=== PATIENT | male | born 1965 | race Caucasian/White ===

== ENCOUNTER → 2022-07-17 11:43 | Outpatient (BNVA) | payer OTHER, SELFPAY | PROVIDERS: Visit Provider Orthopaedic Surgery | DX: M25.561 Pain in right knee (principal) | CPT/HCPCS: 73560; 73565; 99203 ==

== ENCOUNTER → 2022-07-18 09:13 | Outpatient (BNVA) | payer OTHER, SELFPAY | PROVIDERS: Visit Provider Orthopaedic Surgery | DX: M48.061 Spinal stenosis, lumbar region without neurogenic claudication (principal) | CPT/HCPCS: 72110; 99203; 99204 ==

== ENCOUNTER 2022-08-19 10:19 | Outpatient (CLI) | payer OTHER, SELFPAY ==
--- NOTE | 2022-08-19 11:45 | MR_ITS ---
WS: [id number] MRI RIGHT KNEE NONCONTRAST TECHNIQUE: Axial PD, coronal PD fat sat, coronal PD, sagittal PD, and sagittal PD fat-sat images obta ined. CLINICAL INFORMATION: knee pain COMPARISON: None. FINDINGS: Distal quadriceps and patella tendons are intact. Hypertrophic patella. ACL and PCL are intact. No si gnificant joint effusion. Meniscus appears well preserved. Small horizontal tear involving the posterior horn medial meniscus e xtending to the articular surface. Normal lateral meniscus. Mild chondromalacia involving the medial and lateral joint compartments. No subchondral edema. Moderate chondromalacia patella worse involving the medial patella facet. Medial and lateral patellar retinaculum intact. Normal popliteal fossa. No rmal medial and lateral collateral ligaments. MR/MR knee RT wo con* [id number] IMPRESSION: 1. Normal ACL and PCL. 2. Small horizontal tear involving the posterior horn medial meniscus extendin g to the articular surface. Normal lateral meniscus. 3. Moderate chondromalacia patella worse involving the medial patella facet. N o subchondral edema. 4. Mild chondromalacia involving the medial and lateral joint compartments. 5. Medial and lateral collateral ligaments are intact. 6. No other acute findings. Outbridge grading: grade III: partial-thickness cartilage loss with focal ulcer ation
== END 2022-08-19 10:20 | disposition home or self-care (01) ==
LOC: RAD 10:20
PROVIDERS: Visit Provider Orthopaedic Surgery
DX: M22.41 Chondromalacia patellae, right knee (principal); S83.241A Other tear of medial meniscus, current injury, right knee, initial encounter; X58.XXXA Exposure to other specified factors, initial encounter
CPT/HCPCS: 73721

== ENCOUNTER 2022-08-19 10:19 | Outpatient (CLI) | payer OTHER, SELFPAY ==
--- NOTE | 2022-08-19 11:00 | MR_ITS ---
WS: [id number] MRI LUMBAR SPINE NONCONTRAST TECHNIQUE: Sagittal T1, T2 and STIR imaging. Axial T1 and T2 imaging. CLINICAL INFORMATION: low back pain COMPARISON: None. FINDINGS: Small central disc osteophyte protrusions in the cervical spinal market intelligence consultant imaging at C3-C4 and C6-C7 wit h slight contact of the cervical cord. L1-L2: Normal. L2-L3: Mild facet arthropathy. Spinal canal and foramen are patent. L3-L4: Mild annular bulging with slight effacement of ventral thecal sac. Mild to moderate facet arth ropathy. Spinal canal and foramen are patent. L4-L5: Mild annular bulging. Spinal canal is patent. Mild LEFT and no significant RIGHT foraminal lluvia rowing. Moderate facet arthropathy. L5-S1: Mild disc bulging with osteophytic ridging. Slight impingement on the traversing LEFT S1 nerve root. Mild LEFT foraminal narrowing with contact of the exiting LEFT L5 nerve root. RIGHT foramen is patent. Moderate facet arthropathy. Visualized pelvic bony structures: Normal. Paravertebral soft tissues: Normal. MR/MR lumbar spine wo con* [id number] IMPRESSION: 1. Mild lumbar curve. No acute compression. No high-grade central canal stenos is. 2. Mild disc bulging with osteophytic ridging. Slight impingement on the trave rsing LEFT S1 nerve root. Mild LEFT foraminal narrowing with contact of the exi ting LEFT L5 nerve root. 3. Mild annular bulging L3-L4 with slight narrowing of the RIGHT subarticular recess and encroachment traversing RIGHT L4 nerve root. 4. Mild to moderate facet arthropathy L3-L5.
== END 2022-08-19 10:20 | disposition home or self-care (01) ==
LOC: RAD 10:20
PROVIDERS: Visit Provider Orthopaedic Surgery
DX: M51.26 Other intervertebral disc displacement, lumbar region (principal); M47.896 Other spondylosis, lumbar region
CPT/HCPCS: 72148

== ENCOUNTER → 2022-08-20 14:20 | Outpatient (BNVA) | payer OTHER, SELFPAY | PROVIDERS: Visit Provider Orthopaedic Surgery | DX: M48.062 Spinal stenosis, lumbar region with neurogenic claudication (principal) | CPT/HCPCS: 99214 ==

== ENCOUNTER → 2022-08-27 14:00 | Outpatient (BNVA) | payer OTHER, SELFPAY | PROVIDERS: PCP Nurse Practitioner; Visit Provider Orthopaedic Surgery | DX: S83.206A Unspecified tear of unspecified meniscus, current injury, right knee, initial encounter (principal) | CPT/HCPCS: 99213 ==

== ENCOUNTER → 2022-09-18 10:28 | Outpatient (BNVA) | payer OTHER, SELFPAY | PROVIDERS: PCP Nurse Practitioner; Visit Provider Anesthesiology Pain Medicine | DX: M47.816 Spondylosis without myelopathy or radiculopathy, lumbar region (principal); M79.604 Pain in right leg; M79.605 Pain in left leg | CPT/HCPCS: 99205 ==

== ENCOUNTER → 2022-10-17 13:20 | Outpatient (BNVA) | payer OTHER, SELFPAY | PROVIDERS: PCP Nurse Practitioner; Visit Provider Anesthesiology Pain Medicine | DX: M48.062 Spinal stenosis, lumbar region with neurogenic claudication (principal) | CPT/HCPCS: 62323; J1040; J3490 ==

== ENCOUNTER → 2022-10-31 09:39 | Outpatient (BNVA) | payer OTHER, SELFPAY | PROVIDERS: PCP Nurse Practitioner; Visit Provider Anesthesiology Pain Medicine | DX: M48.062 Spinal stenosis, lumbar region with neurogenic claudication (principal); M47.816 Spondylosis without myelopathy or radiculopathy, lumbar region | CPT/HCPCS: 99212 ==

== ENCOUNTER → 2022-11-28 09:52 | Outpatient (BNVA) | payer OTHER, SELFPAY | PROVIDERS: PCP Nurse Practitioner; Visit Provider Anesthesiology Pain Medicine | DX: M48.062 Spinal stenosis, lumbar region with neurogenic claudication (principal); M47.816 Spondylosis without myelopathy or radiculopathy, lumbar region | CPT/HCPCS: 99214 ==

== ENCOUNTER → 2022-12-04 10:48 | Outpatient (BNVA) | payer OTHER, SELFPAY | PROVIDERS: PCP Nurse Practitioner; Visit Provider Orthopaedic Surgery | DX: S83.206A Unspecified tear of unspecified meniscus, current injury, right knee, initial encounter (principal); X58.XXXA Exposure to other specified factors, initial encounter | CPT/HCPCS: 99213 ==

== ENCOUNTER → 2022-12-19 13:04 | Outpatient (BNVA) | payer OTHER, SELFPAY | PROVIDERS: PCP Nurse Practitioner; Visit Provider Anesthesiology Pain Medicine | DX: M47.816 Spondylosis without myelopathy or radiculopathy, lumbar region (principal); M48.062 Spinal stenosis, lumbar region with neurogenic claudication | CPT/HCPCS: 64493; 64494; 64495; J1030; J3490 ==

== ENCOUNTER 2022-12-26 08:39 | Day surgery (SDC) | payer OTHER, SELFPAY ==
[2022-12-25 12:54] VITALS: BMI 24.8
[2022-12-26] VITALS (10 sets, daily range): BP systolic 94–137; BP diastolic 74–106; PULSE 72–92; RESP 12–25; TEMP 36.3–36.4; O2SAT 96–98
[2022-12-26] MEDS: acetaminophen 500 mg Tablet 1000 MG PO (09:12)
[2022-12-26] MEDS: CELEcoxib 200 mg Capsule 400 MG PO (09:13)
[2022-12-26] MEDS: sodium chloride 0.9% 1,000 ML 30 ML IV (09:14)
--- NOTE | 2022-12-26 10:14 | W.PM.OPSUD ---
Surgery/Procedure H&P Update DATE OF PROCEDURE: December 26, 2022 DATE H&P PERFORMED: 12/03/22 H&P UPDATE INFORMATION: I have reviewed H&P completed within last 30 days PREOP DIAGNOSIS: Right medial meniscal tear PLANNED PROCEDURE: Operation Date: 12/26/22 10:10 Proposed Procedures p right knee artroscopy with medial meniscectomy/ [id number],S83.206A(Right) - Ernesto Hadley MD
[2022-12-26] MEDS: ceFAZolin 2,000 MG in sodium chloride 0.9% (plus) 50 ML 100 MG IV (10:23)
[2022-12-26] MEDS: morphine 4 mg/mL SDV 1 mL 8 MG XX (10:49)
--- NOTE | 2022-12-26 11:15 | P.OP_ITS ---
Operative Report Date of procedure: December 26, 2022 Pre-op diagnosis: Preop Diagnosis Right medial meniscal tear Post-op diagnosis: other Post-op diagnosis: Right lateral meniscal tear, chondromalacia medial femoral condyle, chondromalacia patella Procedure done: Arthroscopic partial lateral meniscectomy, chondroplasty medial femoral condyle, chondroplasty patella right knee Pathology: none sent Surgeon: Ernesto Hadley Anesthesia: General Estimated blood loss (mL): 2 Findings: The patient had degenerative tearing of the central 30% of his lateral meniscus. He had fibrillation fraying and thinning throughout the weightbearing aspect of the medial femoral condyle and central patellar ridge. At no point was exposed subchondral bone identified in either location Condition: stable Disposition: PACU Procedure: The patient was taken to the operating room given 2 g of Ancef and a general anesthesia. He is prepped and draped in the supine position with a tourniquet on the right thigh. The tourniquet was never inflated. The knee was infiltrated with 30 cc of 0.5% Marcaine and 8 mg of morphine. A timeout was performed The knee was initially entered through a standard inferior medial and inferior lateral portal. The diagnostic portion arthroscopy performed. Chondromalacia over the patella and medial femoral condyle was identified. Attention was initially focused on the lateral meniscus. Utilizing a straight basket the torn portions of the lateral meniscus were debrided back to a stable rim. This involved removal of perhaps 25% of the central cartilage in the middle third of the lateral meniscus. The rim was then cleaned up with the Tran [employer] Nephew Werewolf probe leading 70% of the middle third of the meniscus remaining. There is no chondromalacia to address in the lateral compartment. Attention was then focused on the weightbearing aspect the medial femoral condyle. There is noted to be substantial thinning centrally and peripherally unstable flaps circumferentially about the area. Using the Tran [employer] Nephew Werewolf cautery unstable flaps peripherally around the area of thinning were debrided back to a stable base. And no point was subchondral bone identified however cartilage was very thin centrally. Final attention was directed to the undersurface the patella. Using the Tran [employer] Nephew Werewolf cautery unstable flaps about the central ridge of the pat tiffanie were debrided down to a stable base leaving perhaps 50% of the thickness of the cartilage. Knee was irrigated with saline. Portals were closed with 3-0 Prolene. Sterile dressings were applied. The patient was extubated and taken to recovery room in stable condition.
[2022-12-26] MEDS: fentaNYL 50 mcg/mL INJ 2mL IVP (11:30)
[2022-12-26] MEDS: HYDROcodone-acetaminophen 5-325 mg Tablet 1 TAB PO (12:20)
--- NOTE | 2022-12-26 14:05 | ANES.PREANE2 ---
Pre-Anesthetic Assessment Height/Weight: Height 1.78 m Weight 78.471 kg Temp Pulse Resp BP Pulse Ox O2 Del Method 97.4 F L 80 16 135/91 98 12/26/22 11:58 12/26/22 12:31 12/26/22 12:31 12/26/22 12:31 12/26/22 12:31 12/26/22 12:31 Preop Diagnosis: Right medial meniscal tear Operation Date: 12/26/22 10:10 Proposed Procedures p right knee artroscopy with medial meniscectomy/ [id number],S83.206A(Right) - Ernesto Hadley MD Familial anesthetic complications: none Was Beta Sanju taken within 24 hours: N/A Was Clonidine taken within 24 hours: N/A Last intake: Intake Last Liquid Date 12/25/22 Last Liquid Time 23:00 Last Solid Date 12/25/22 Last Solid Time 20:00 Social Tobacco and No alcohol Exam alert, oriented x 3 and regular rate & rhythm Airway Submandibular: within normal limits Cervical ROM: within normal limits Mallampati: Class II Dentition: false Pulmonary Chronic Obstructive Pulmonary Disease Metabolic Hyperlipidemia [facility] [place] Lower Back Pain and Osteoarthritis/DJD Anesthetic Plan ASA status: 2 Anesthesia: General Medications/Allergies Home Medications Medication Instructions Recorded Confirmed Last Taken Type celecoxib 200 mg capsule (Celebrex) 200 mg PO DAILY 07/18/22 12/26/22 12/17/22 History simvastatin 20 mg tablet 20 mg PO DAILY 07/18/22 12/26/22 12/25/22 History hydrocodone 5 mg-acetaminophen 325 1 tab PO Q4H #30 tabs 12/26/22 Unknown Rx mg tablet Allergies Allergy/AdvReac Type Severity Reaction Status Date / Time No Known Allergies Allergy Verified 12/26/22 09:08 [facility] Anesthesia Social History Smoking and tobacco status: current every day smoker Second hand smoke exposure: No Smoking risk assessment/counseling performed?: No Alcohol intake: current Desire information about alcohol rehabilitation?: No Counseling given: No Desire information about substance/drug rehabilitation?: No Counseling given: No Data Anesthesia Cardiac Studies: No Data to Display
--- NOTE | 2022-12-26 16:04 | ANE.PACU2 ---
Inpatient post-anesthesia follow up: Airway intact: Yes Vital signs: Temperature 97.4 F Pulse Rate 80 Respiratory Rate 16 Blood Pressure 135/91 Pulse Oximetry 98 Oxygen Delivery Me thod Room Air Oxygen Flow Rate Fraction of Inspir ed Oxygen Hydration adequate: Yes Nausea and vomiting: No Pain level: 3 Mental status: Baseline
== END 2022-12-26 12:55 | disposition home or self-care (01) ==
PROVIDERS: PCP Nurse Practitioner; Visit Provider Orthopaedic Surgery
PROC: (CPT 29870; principal; 2022-12-26 10:10)
DX: S83.281A Other tear of lateral meniscus, current injury, right knee, initial encounter (principal); X58.XXXA Exposure to other specified factors, initial encounter; M22.41 Chondromalacia patellae, right knee; J44.9 Chronic obstructive pulmonary disease, unspecified; E78.5 Hyperlipidemia, unspecified; F17.210 Nicotine dependence, cigarettes, uncomplicated
CPT/HCPCS: 29881; J0690; J1100; J2250; J2270; J2405; J2704; J2795; J3010; J3490; J7030

== ENCOUNTER → 2023-01-07 09:30 | Outpatient (BNVA) | payer OTHER, SELFPAY | PROVIDERS: PCP Nurse Practitioner; Visit Provider Anesthesiology Pain Medicine | DX: M48.062 Spinal stenosis, lumbar region with neurogenic claudication (principal); M47.816 Spondylosis without myelopathy or radiculopathy, lumbar region | CPT/HCPCS: 99214 ==

== ENCOUNTER → 2023-01-08 09:22 | Outpatient (BNVA) | payer OTHER, SELFPAY | PROVIDERS: PCP Nurse Practitioner; Visit Provider Orthopaedic Surgery | DX: Z98.890 Other specified postprocedural states (principal) | CPT/HCPCS: 99024 ==

== ENCOUNTER → 2023-01-09 08:34 | Outpatient (BNVA) | payer OTHER, SELFPAY | PROVIDERS: PCP Nurse Practitioner; Visit Provider Anesthesiology Pain Medicine | DX: M79.18 Myalgia, other site (principal); M48.062 Spinal stenosis, lumbar region with neurogenic claudication | CPT/HCPCS: 20553; 99212 ==

== ENCOUNTER → 2023-02-05 09:49 | Outpatient (BNVA) | payer OTHER, SELFPAY | PROVIDERS: PCP Nurse Practitioner; Visit Provider Orthopaedic Surgery | DX: Z98.890 Other specified postprocedural states (principal); M17.11 Unilateral primary osteoarthritis, right knee | CPT/HCPCS: 20610; 99024; J0702; J3490 ==

== ENCOUNTER → 2023-02-06 08:48 | Outpatient (BNVA) | payer OTHER, SELFPAY | PROVIDERS: PCP Nurse Practitioner; Visit Provider Anesthesiology Pain Medicine | DX: M48.062 Spinal stenosis, lumbar region with neurogenic claudication (principal); M47.816 Spondylosis without myelopathy or radiculopathy, lumbar region | CPT/HCPCS: 99214; 99215 ==

== ENCOUNTER → 2023-03-05 10:33 | Outpatient (BNVA) | payer OTHER, SELFPAY | PROVIDERS: PCP Nurse Practitioner; Visit Provider Orthopaedic Surgery | DX: Z98.890 Other specified postprocedural states (principal); M17.11 Unilateral primary osteoarthritis, right knee | CPT/HCPCS: 20610; 99024; J7326 ==

== ENCOUNTER → 2023-03-06 13:38 | Outpatient (BNVA) | payer OTHER, SELFPAY | PROVIDERS: PCP Nurse Practitioner; Visit Provider Anesthesiology Pain Medicine | DX: M54.16 Radiculopathy, lumbar region (principal); M48.062 Spinal stenosis, lumbar region with neurogenic claudication | CPT/HCPCS: 64483; 64484 ==

== ENCOUNTER → 2023-03-24 13:39 | Outpatient (BNVA) | payer OTHER, SELFPAY | PROVIDERS: PCP Nurse Practitioner; Visit Provider Anesthesiology Pain Medicine | DX: M54.16 Radiculopathy, lumbar region (principal); M48.062 Spinal stenosis, lumbar region with neurogenic claudication | CPT/HCPCS: 64483; 64484; J1100; J3490 ==

== ENCOUNTER → 2023-04-14 09:22 | Outpatient (BNVA) | payer OTHER, SELFPAY | PROVIDERS: PCP Nurse Practitioner; Visit Provider Anesthesiology Pain Medicine | DX: M47.816 Spondylosis without myelopathy or radiculopathy, lumbar region (principal); M48.062 Spinal stenosis, lumbar region with neurogenic claudication | CPT/HCPCS: 99214 ==

== ENCOUNTER → 2023-04-29 15:55 | Outpatient (BNVA) | payer OTHER, SELFPAY | PROVIDERS: PCP Nurse Practitioner; Visit Provider Physician Assistant | DX: M47.816 Spondylosis without myelopathy or radiculopathy, lumbar region (principal); M48.062 Spinal stenosis, lumbar region with neurogenic claudication | CPT/HCPCS: 72100; 99213 ==

== ENCOUNTER 2023-05-08 11:14 | Outpatient (CLI) | payer OTHER, SELFPAY ==
--- NOTE | 2023-05-08 11:45 | MR_ITS ---
WS: [id number] MRI LUMBAR SPINE NONCONTRAST HISTORY: M48.062 - Spinal stenosis, lumbar region with neurogenic ... COMPARISON: 08/19/2022 TECHNIQUE: Sagittal and axial multisequence imaging is submitted. Mild osteophyte/disc contact on the cervical cord at C3-4 and C6-7. Normal lumbar alignment with no compression fractures or marrow edema. Mild disc narrowing and desiccation. No acute lumbar fractures. Conus terminates normally at L1-2 disc level. L1-L2: Normal. L2-L3: Mild annular disc bulging with minimal ligamentum flavum hypertrophy. No stenosis. L3-L4: Mild diffuse annular disc bulging encroaching upon the ventral thecal sac. Mild facet arthriti s. Very mild disc encroachment upon the right traversing L4 nerve root. L4-L5: Mild annular disc bulging with mild facet arthritis. Very minimal encroachment upon the forami na. No high-grade stenosis. L5-S1: Mild annular disc bulging with mild to moderate bilateral facet joint arthritis. Mild to moder ate bilateral foraminal stenosis. Very minimal impingement upon the left S1 nerve root as seen on the prior study. Paravertebral soft tissues are normal. IMPRESSION: 1. No high-grade central or foraminal stenosis. 2. Mild to moderate bilateral foraminal stenosis at L5-S1 with minimal disc encroachment upon the lef t S1 nerve root. Very similar to the prior study. 3. Very minimal disc encroachment upon the right traversing L4 nerve root. 4. No lumbar spine fracture.
== END 2023-05-08 11:15 | disposition home or self-care (01) ==
PROVIDERS: PCP Nurse Practitioner; Visit Provider Anesthesiology Pain Medicine
DX: M48.062 Spinal stenosis, lumbar region with neurogenic claudication (principal)
CPT/HCPCS: 72148; 99213

== ENCOUNTER → 2023-06-26 10:14 | Outpatient (BNVA) | payer OTHER, SELFPAY | PROVIDERS: PCP Nurse Practitioner; Visit Provider Physician Assistant | DX: M48.062 Spinal stenosis, lumbar region with neurogenic claudication (principal); M47.816 Spondylosis without myelopathy or radiculopathy, lumbar region; M51.36 Other intervertebral disc degeneration, lumbar region | CPT/HCPCS: 99213 ==

== ENCOUNTER 2023-07-01 10:06 | Outpatient (CLI) | payer OTHER, SELFPAY ==
[2023-07-01 10:36] LABS: Basophils # 0.1 10^3/uL (0.0-0.1); Basophils % 0.9 %; Eosinophils # 0.1 10^3/uL (0.0-0.8); Hematocrit 49.8 % (37-53); Lymphocytes # 1.8 10^3/uL (0.8-4.8); Lymphocytes % 27.8 %; Mean Corpuscular HGB Conc 33.3 g/dL (30-55); Mean Corpuscular Hemoglobin 32.1 pg (27-33); Mean Corpuscular Volume 96.3 fl (82-101); Mean Platelet Volume 9.6 fL (7.4-10.4); Monocytes # 0.4 10^3/uL (0.2-0.9); Monocytes % 5.4 %; Neutrophils # 4.14 10^3/uL (1.8-7.7); Neutrophils % 63.6 %; Nucleated Red Blood Cells % 0 %; Platelet Count 257 10^3/cmm (157-399); Red Blood Count 5.17 10^6/uL (3.85-5.65); Red Cell Distribution Width 12.3 % (12.1-15.1); White Blood Count 6.51 10^3/uL (3.29-11.43)
[2023-07-01 11:00] LABS: Alanine Aminotransferase 13 U/L (0-41); Albumin Level 4.6 g/dL (3.5-5.2); Alkaline Phosphatase 58 U/L (40-130); Anion Gap 13.2 (5-19); Aspartate Amino Transferase 20 U/L (0-40); Blood Urea Nitrogen 12 mg/dL (6-20); Calcium 9.4 mg/dL (8.5-10.5); Carbon Dioxide 28 mmol/L (22-29); Chloride 103 mmol/L (98-107); Globulin 2.7 g/dL (1.3-4.6); Glomerular Filtration Rate 76.5 mL/min (90-130); Glucose 98 mg/dL (65-115); Osmolality Calculated 290 mOsm/kg (285-295); Potassium 4.2 mmol/L (3.5-5.1); Sodium 140 mmol/L (136-145); Total Bilirubin 0.2 mg/dL (0.15-1.2); Total Protein 7.3 g/dL (6.6-8.7)
[2023-07-01 11:19] LABS: Estmated Average Glucose 108; Hemoglobin A1C 5.4 % (4.0-6.0)
[2023-07-01 11:49] LABS: Add Urine Microscopic? YES; Bacteria Urine TRACE /hpf; Bilirubin Urine Neg (Negative); Blood Urine 2+ (Negative); Glucose Urine UA Norm (Normal); Ketones Urine Negative (Negative); Leukocyte Esterase Urine Negative (Negative); Mucus Urine 1+ /hpf; Nitrate Urine Negative (Negative); Protein Urine Neg (Negative); RBC Urine 0-4 /hpf (0-2); Specific Gravity, Urine 1.015 (1.005-1.030); Squamous Epithelial Cell Urine RARE /hpf (0-5); Urine Appearance Clear (CLEAR); Urine Color Yellow (Yellow); Urobilinogen Urine Norm (Negative); WBC Urine RARE /hpf (0-5); pH Urine 5 (5-7)
== END 2023-07-01 10:07 | disposition home or self-care (01) ==
PROVIDERS: PCP Nurse Practitioner; Visit Provider Physician Assistant
DX: M48.062 Spinal stenosis, lumbar region with neurogenic claudication (principal); Z79.899 Other long term (current) drug therapy
CPT/HCPCS: 36415; 80053; 81001; 83036; 85025

== ENCOUNTER → 2023-07-09 10:05 | Outpatient (BNVA) | payer OTHER, SELFPAY | PROVIDERS: PCP Nurse Practitioner; Visit Provider Family Medicine | DX: Z01.818 Encounter for other preprocedural examination (principal) | CPT/HCPCS: 81000 ==

== ENCOUNTER 2023-07-11 08:38 | Inpatient (IN) | payer OTHER, SELFPAY ==
[2023-07-11] VITALS (19 sets, daily range): BP systolic 89–130; BP diastolic 51–84; PULSE 56–86; RESP 11–19; TEMP 35.9–36.6; O2SAT 90–97; BMI 25.8
--- NOTE | 2023-07-11 | XR_ITS ---
WS: [id number] Lumbar spine, C-arm fluoroscopy views, 07/11/2023 Clinical Data: L5 -S1 fusion. or pic Comparison: Lumbar spine, 04/29/2023 Findings: Dr. Driscoll performed a posterior lumbar fusion Impression: Posterior lumbar fusion.
[2023-07-11] MEDS: methadone 10 mg Tablet PO (06:12)
[2023-07-11] MEDS: sodium chloride 0.9% 1,000 ML 30 ML IV (06:13)
--- NOTE | 2023-07-11 06:36 | W.PM.OPSUD ---
Surgery/Procedure H&P Update DATE OF PROCEDURE: July 11, 2023 DATE H&P PERFORMED: 07/09/23 H&P UPDATE INFORMATION: I have reviewed H&P completed within last 30 days, I have examined patient prior to procedure and No changes to prior documentation PREOP DIAGNOSIS: DDD lumbar spine PLANNED PROCEDURE: Operation Date: 07/11/23 07:00 Proposed Procedures p Spinal Fusion PSF(Not Applicable) - Randall Driscoll DO s Posterior Lumbar Interbody Fusion PLIF(Not Applicable) - Randall Driscoll DO
--- NOTE | 2023-07-11 06:53 | P.ANESASSM_ITS ---
Documented by User: DANILO Winston 07/11/23 06:55 Pre-Anesthetic Assessment Height/Weight: Height 1.75 m Weight 79.379 kg Temp Pulse Resp BP Pulse Ox O2 Del Method 97.0 F L 86 19 H 104/68 97 Room Air 07/11/23 05:52 07/11/23 05:52 07/11/23 06:12 07/11/23 05:52 07/11/23 05:52 07/11/23 06:06 Preop Diagnosis: DDD lumbar spine Operation Date: 07/11/23 07:00 Proposed Procedures p Spinal Fusion PSF(Not Applicable) - Randall Driscoll DO s Posterior Lumbar Interbody Fusion PLIF(Not Applicable) - Randall Driscoll DO Familial anesthetic complications: None Was Beta Sanju taken within 24 hours: N/A Was Clonidine taken within 24 hours: N/A Last intake: Intake Last Liquid Date 07/10/23 Last Liquid Time 23:00 Last Solid Date 07/10/23 Last Solid Time 19:30 Social Alcohol and Tobacco Exam alert and oriented x 3 Airway Submandibular: within normal limits Cervical ROM: within normal limits Mallampati: Class II Dentition: partials History/ROS No significant history except as noted Pulmonary Cough (r/t smoking) CV/HEM None reported None reported Hepatic None reported GI None reported Metabolic None reported Musc/skel Lower Back Pain Neuropsych None reported Anesthetic Plan ASA status: 2 Anesthesia: General Risk of > 500 ml blood loss (7ml/kg in children): No Medications/Allergies Home Medications Medication Instructions Recorded Confirmed Last Taken Type celecoxib 200 mg capsule (Celebrex) 200 mg PO DAILY 07/18/22 07/11/23 07/08/23 History finasteride 5 mg tablet 5 mg PO DAILY 07/09/23 07/11/23 07/10/23 History gabapentin 300 mg capsule 100 mg PO TID pain 07/09/23 07/11/23 07/10/23 History methocarbamol 750 mg tablet 750 mg PO BID PRN Spasms 07/09/23 07/10/23 Unknown History rosuvastatin 40 mg tablet (Crestor) 20 mg PO DAILY 07/09/23 07/11/23 07/10/23 History trazodone 100 mg tablet 100 mg PO DAILY 07/09/23 07/11/23 07/10/23 History Allergies Allergy/AdvReac Type Severity Reaction Status Date / Time topiramate Allergy Mild numbness Uncoded 07/10/23 11:29 Current Medications Generic Name Dose Route Start Last Admin Trade Name Bob PRN Reason Stop Dose Admin Sodium Chloride 1,000 mls @ 30 mls/hr 07/11/23 06:00 07/11/23 06:13 Sodium Chloride 0.9% IV 07/12/23 05:59 30 mls/hr .Q24H DANIEL Administration PFS Anesthesia Social History Smoking and tobacco/nicotine status: current every day tobacco/nicotine user Second hand smoke exposure: No Alcohol intake: current Substance/Drug Use: never Data Anesthesia Cardiac Studies: No Data to Display Documented by User: Ryan Lane 07/11/23 07:19 Pre-Anesthetic Assessment Pulmonary Chronic Obstructive Pulmonary Disease Metabolic Hyperlipidemia [facility] [place]/[facility] Osteoarthritis/DJD Medications/Allergies Home Medications Medication Instructions Recorded Confirmed Last Taken Type celecoxib 200 mg capsule (Celebrex) 200 mg PO DAILY 07/18/22 07/11/23 07/08/23 History finasteride 5 mg tablet 5 mg PO DAILY 07/09/23 07/11/23 07/10/23 History gabapentin 300 mg capsule 100 mg PO TID pain 07/09/23 07/11/23 07/10/23 History methocarbamol 750 mg tablet 750 mg PO BID PRN Spasms 07/09/23 07/10/23 Unknown History rosuvastatin 40 mg tablet (Crestor) 20 mg PO DAILY 07/09/23 07/11/23 07/10/23 History trazodone 100 mg tablet 100 mg PO DAILY 07/09/23 07/11/23 07/10/23 History Allergies Allergy/AdvReac Type Severity Reaction Status Date / Time topiramate Allergy Mild numbness Uncoded 07/10/23 11:29 [facility] Anesthesia Social History Smoking and tobacco/nicotine status: current every day tobacco/nicotine user Second hand smoke exposure: No Alcohol intake: current Substance/Drug Use: never Data Anesthesia Cardiac Studies: No Data to Display
[2023-07-11] MEDS: ceFAZolin 2,000 MG in sodium chloride 0.9% (plus) 50 ML 100 MG IV ×3 (06:59→23:51)
[2023-07-11] MEDS: lidocaine-epi 2% 20 mL INJ INJECTION (08:19)
[2023-07-11] MEDS: vancomycin 1,000 MG SDV 1000 MG XX (08:20)
[2023-07-11] MEDS: heparin, porcine 1,000 unit/mL INJ 10 mL 10000 UNIT IRRIGATION (08:21)
--- NOTE | 2023-07-11 09:36 | P.OP_ITS ---
Operative Report Date of procedure: July 11, 2023 Pre-op diagnosis: Lumbar stenosis with neurogenic claudication Post-op diagnosis: same Procedure done: 1. L5/S1 Interbody fusion with posterolateral fusion 2. Instrumentation L5-S1 3. Cage at L5/S1 4. L5/S1 laminectomy with partial facetectomy 5. use of autograft from same incision 6. allograft 7. Bone marrow aspirate from right iliac crest 8 use of computer navigation/steeotactic for spine Surgeon: Randall Driscoll DO Electric Accounting Machine Operator: Brad Thao Electric Accounting Machine Operator: The surgical services director, Brad Thao, PAC was needed for his expertise under the microscope. He was important and necessary throughout the procedure to complete in a safe and timely manner. He assisted with patient positioning prepping and draping tissue retraction suctioning of the operative field protection of the dural sac and tissue closure Estimated blood loss (mL): 200 Procedure: 1. L5/S1 Interbody fusion with posterolateral fusion 2. Instrumentation L5-S1 3. Cage at L5/S1 4. L5/S1 laminectomy with partial facetectomy 5. use of autograft from same incision 6. allograft 7. Bone marrow aspirate from right iliac crest 8 use of computer navigation/steeotactic for spine Patient is brought to the operative suite. After undergoing anesthesia, the patient had neuro monitoring attached. Patient was then placed in the prone position on the Mikal table. All areas of impingement were well-padded. Patient was then prepped and draped in the normal sterile fashion. Skin incision was then made L5-S1. Subperiosteal dissection was made out to the transverse processes of L5 and S1 sacral ala. Next tension was brought to the [employer] bone marrow aspirate kit was used to aspirate bone marrow aspirate from the right iliac crest. This was done by using the sharp probe to open up the bone. Aspiration was performed and then the blunt probe was then used to dissect down to through the bone tunnel. An aspirating well drawn back a millimeter approximately 20 cc of bone marrow aspir ate was used. And mixed with the allograft and autograft bone that will be used. Patient is brought to placing the fiducial for the computer navigation. 2 pins were placed into the right iliac crest. The fiducial was then attached. Was brought in and spun around the patient. Next the information from serum was then loaded in the computer and this was used later used for the use of computer navigation placed pedicle screws. The technique for placing the pedicle screws was to use a drill followed by the gearshift probe linked to computer navigation. Followed by the ball probe to feel the superior inferior medial lateral sanderson of the pedicles. Then placement of the screws with computer navigation. Was done at each pedicle. Screws were placed at L5 bilaterally and S1 . Next attention was brought to performing the laminectomy ofL5. This was done using the high-speed bur Kerrisons and curettes. Once the lamina was removed and then attention was brought to performing a partial facetectomy on the contralateral side. This was done again using the high-speed bur curettes and Kerrisons. The ligamentum flavum was taken down bilaterally from L5 to S1. Attention was then brought to the facet on the ipsilateral side. The facet was taken down. The S1 nerve was decompressed as it passed around the S1 pedicle. The laminectomy was done for purposes of decompressing the nerve as well as placement of the cage. The L5 nerve was identified as it traversed through the L5/S1 foramen. The thecal sac was identified and retracted. The L5/S1 disc base was identified. Using a knife the disc base was opened. And then sequential owen were placed. The first shaver was a 6 and the last shaver was a 8. Using a pituitary and down going curette the endplates were scraped and disc material was removed from the space. Once adequate decompression of the disc base was felt to be had. Osteoamp sponge was packed into the anterior aspect of the disc base. Then a size 9 cage from [place] was placed after packing osteoamp into the cage. While placing the cage the thecal sac and S1 nerve was protected. C arm was used to ensure that the cages placed in the appropriate position. Attention was then brought to attaching the rods to the screws placed in the L5 bilaterally and S1 bilaterally. Caps were torqued into position. Locking the construct in place. Wound was copiously irrigated and then attention was brought to decorticating the facets and transverse processes laterally. Bone that was taken down from the lamina was used along with osteoamp fibers and sponges were packed into the lateral gutters along the facet joints. This was done bilaterally. Wound was then closed in a layered fashion starting with the thoracolumbar fascia. 0-vicryl was used the sub cutaneous tissue was closed with 2-0 vicryl and skin with 4-0 monocryl. Glue was then used to seal the skin and a steril dressing was applied. Patient was then placed in the supine position. The endotracheal tube was removed and patient was transferred to the PACU in stable condition.
[2023-07-11] MEDS: ketorolac 30 mg/mL INJ IVP ×2 (10:46→21:27)
[2023-07-11] MEDS: lactated ringers 1,000 ML 90 ML IV (10:47)
[2023-07-11] MEDS: HYDROcodone-acetaminophen 5-325 mg Tablet PO ×3 (10:48→21:24)
--- OUTSIDE RECORDS SUMMARY | 2023-07-11 12:02 | XMS_ITS | Patient Health Record ---
Author Name Unknown Organization [facility] Address [address] [place] [address] Care Team Providers Care Construction Tech Name Role Phone Kalen MULLER Primary Care Provider Unavailab Merrick Stacy Unavailable Melvin Evans Unavailable [phone] ALLERGIES Allergen (clinical drug ingredient) Drug/Non Drug Allergy documented on EMR Reaction Allergy Type Onset Date Status tamsulosin Tamsulosin Unknown Drug Allergy Activ e topiramate Topiramate Unknown Drug Allergy Activ e RESULTS Component Value Reference Range Notes UA Without Micro-Auto [id number] Reviewed date:01/31/2023 11:52:17 AM Interpretation: Performing Lab: Notes/Report: Color yellow Clarity clear Glucose - Bili - Ketones - Sp Jemison 1.015 Blood - pH 6.0 Protein - Urobili - Nitrites - Leukocytes - UA Without Micro-Auto [id number] Reviewed date:02/26/2023 02:26:41 PM Interpretation: Performing Lab: Notes/Report: Color yellow Clarity clear Glucose - Bili - Ketones - Sp Jemison 1.010 Blood trace pH 5.5 Protein - Urobili - Nitrites - Leukocytes - REASON FOR REFERRAL Reason Screening Recall-Dye r-Not due until after 09/15/2022 COLON Diagnosis 1 Colon cancer high ri sk (Z91.89) Referring Provider First Name Kalen diana Referring Provider Last Name [place] Referring Provider Speciality [facility] Referred Organization [facility] Referred Provider Melvin Evans Referred Address [address] [place],[address] Referred Provider Specialty Gastroentero logy Referral Priority Routine Reason [facility] Action Reminder S et 01/20/23 Diagnosis 1 Urethral diverticulu m (N36.1) Referring Provider First Name Kalen diana Referring Provider Last Name [place] [facility]erring Provider [facility] Referred Organization [facility] Referred Provider aMc Andrea Referred Address [address] [place] [address],[facility],[place],[address], Referred Provider Specialty Urology Referral Priority Routine MEDICATIONS Medication SIG (Take, Route, Frequency, Duration) Notes Start Date End Date Status Celecoxib Active Sildenafil Citrate A ctive traZODone HCl Active Rosuvastatin Calcium 40 MG Half a tablet Orally Once a day Active HYDROcodone-Acetaminophen Active IMMUNIZATIONS Vaccine Route Administration Date Status Comme nts Influenza (whole), CPT 44168 Inactive Unknown 07/26/2019 Administered SOCIAL HISTORY Tobacco Use: Social History Observation Description Date Details (start date - stop date) Current Smoker NA - NA Sex Assigned At : Social History Observation Description Sex Assigned At Unknown Tobacco Use/Smoking Question Answer Notes Are you a current smoker How often do you smoke cigarettes? some days, bu t not every day How many cigarettes a day do you smoke? 6-10 Alcohol Screen (Audit-C) Question Answer Notes Did you have a drink contain ing alcohol in the past year? Yes How often did you have a dri nk containing alcohol in the past year? 2 to 3 times a week (3 points) How many drinks did you have on a typical day when you were drinking in the past year? 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) Active confirmed 186752726 Problem BPH loc w urin obs/LUTS (N40.1) Active confirmed 175196909 Problem History of adenomatous polyp of colon (Z86.010) Active confirmed 803234103 Problem Microscopic hematuria (R31.29) Active confirmed Microscopic hematuria (149916071) Problem Erectile dysfunction, unspecified erectile dysfunction type (N52.9) Active confirmed 184285290 Problem Benign prostatic hyperplasia with lower urinary tract symptoms (N40.1) Active confirmed Lower urinary tract symptoms due to benign prostatic hypertrophy (90465490140322 ) Problem Feeling of incomplete bladder emptying (R39.14) Active confirmed Incomplete emptying of bladder (316585501) Problem Poor urinary stream (R39.12) Active confirmed Slowing of urinary stream (89418579) Problem 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) Active confirmed 27531358 Problem Obstructive and reflux uropathy, unspecified (N13.9) Active confirmed Urinary tract obstruction (6061939) VITAL SIGNS Heart Rate 74 /min 04/17/2023 Temperature 97.8 degrees Fahrenheit 04/17/2023 Height-cm 172.72 cm 04/17/2023 Blood pressure diastolic 74 mm Hg 04/17/2023 Weight-kg 78.93 kg 04/17/2023 Height 68 in 04/17/2023 Blood pressure systolic 122 mm Hg 04/17/2023 Weight 174 lbs 04/17/2023 BMI 26.45 kg/m2 04/17/2023 PROCEDURES Procedure Date Ordered Date Performed Result Body Sit e ELECTRO-UROFLOWMETRY FIRST 04/17/2023 N/A Encounters Encounter Location Date Provider Diagnosis [facility] [address] [place] [address] 09/18/2022 Melvin Evans [facility] [address] [place] [address], [place] [address] 01/07/2023 Merrick Perez [facility] [address] [place] [address], [place] [address] 01/20/2023 Merrick Perez Diverticulum of urachus Q64.4 ; Erectile dysfunction, unspecified erectile dysfunction type N52.9 ; BPH loc w urin obs/LUTS N40.1 ; Poor urinary stream R39.12 and Feeling of incomplete bladder emptying R39.14 [facility] [address] [place] [address] 04/17/2023 Merrick Perez BPH loc w urin obs/LUTS N40.1 ; Poor urinary stream R39.12 ; Feeling of incomplete bladder emptying R39.14 ; Intermittent urinary stream R39.13 ; Microscopic hematuria R31.29 ; Diverticulum of urachus Q64.4 and Erectile dysfunction, unspecified erectile dysfunction type N52.9 [facility] [address] [place] [address] 09/16/2022 Melvin Evans History of adenomatous polyp of colon Z86.010 and Screening for colon cancer Z12.11 [facility] [address] [place] [address], [place] [address] 02/26/2023 Merrick Perez Diverticulum of urachus Q64.4 ; Erectile dysfunction, unspecified erectile dysfunction type N52.9 ; BPH loc w urin obs/LUTS N40.1 ; Poor urinary stream R39.12 ; Feeling of incomplete bladder emptying R39.14 and Microscopic hematuria R31.29 ASSESSMENTS Encounter Date Diagnosis Assessment Notes Treatment Notes Treatment Clinical Notes 09/16/2022 History of adenomatous polyp of colon (ICD-10 - Z86.010) High risk screening colonoscopy today. 01/20/2023 Erectile dysfunction, unspecified erectile dysfunction type (ICD-10 - N52.9) 01/20/2023 Diverticulum of urachus (ICD-10 - Q64.4) 02/26/2023 Erectile dysfunction, unspecified erectile dysfunction type (ICD-10 - N52.9) 02/26/2023 Diverticulum of urachus (ICD-10 - Q64.4) 04/17/2023 Poor urinary stream (ICD-10 - R39.12) 04/17/2023 BPH loc w urin obs/LUTS (ICD-10 - N40.1) 04/17/2023 Feeling of incomplete bladder emptying (ICD-10 - R39.14) 02/26/2023 BPH loc w urin obs/LUTS (ICD-10 - N40.1) 01/20/2023 BPH loc w urin obs/LUTS (ICD-10 - N40.1) 09/16/2022 Screening for colon cancer (ICD-10 - Z12.11) 01/20/2023 Poor urinary stream (ICD-10 - R39.12) 02/26/2023 Poor urinary stream (ICD-10 - R39.12) 04/17/2023 Intermittent urinary stream (ICD-10 - R39.13) 04/17/2023 Microscopic hematuria (ICD-10 - R31.29) 02/26/2023 Feeling of incomplete bladder emptying (ICD-10 - R39.14) 01/20/2023 Feeling of incomplete bladder emptying (ICD-10 - R39.14) 02/26/2023 Microscopic hematuria (ICD-10 - R31.29) 04/17/2023 Diverticulum of urachus (ICD-10 - Q64.4) 04/17/2023 Erectile dysfunction, unspecified erectile dysfunction type (ICD-10 - N52.9) PLAN OF TREATMENT Pending Test Test Name Order Date ELECTRO-UROFLOWMETRY FIRST 04/17/2023 Insurance Providers Payer Name Payer Address Payer Phone Subscriber Number Group Number Insured Name Patient Relationship to Insured Coverage Start Date Coverage End Date [employer] [address] [place] [phone] [id number] Melvin Dockery Self - patient is the insured MEDICAL (GENERAL) HISTORY Medical History History ICD Code Arthritis Hyperlipidemia Tobacco user Adenomatous colon polyps Surgical History Surgery Date(Month/Year) Right knee arthroscopy x 3 ORIF right clavicle Left wrist carpal tunnel release Left knee arthroscopy Hospitalization History Reason Date(Month/Year) sx
[2023-07-11] MEDS: morphine 4 mg/mL SDV 1 mL 2 MG IVP (13:00)
[2023-07-11] MEDS: nicotine 4 mg lozenge MUCOUS MEM (13:00)
--- NOTE | 2023-07-11 13:57 | ANE.PACU2 ---
Inpatient post-anesthesia follow up: Airway intact: Yes Vital signs: Temperature 97.5 F Pulse Rate 79 Respiratory Rate 17 Blood Pressure 116/82 Pulse Oximetry 95 Oxygen Delivery Me thod Nasal Cannula Oxygen Flow Rate 2 Fraction of Inspir ed Oxygen Hydration adequate: Yes Nausea and vomiting: No Pain level: 3 Mental status: Baseline
[2023-07-11] MEDS: gabapentin 100 mg Capsule PO ×2 (15:30→21:25)
[2023-07-11] MEDS: docusate sodium 100 mg Capsule PO (17:04)
[2023-07-12] VITALS: BP 96/57; PULSE 61; RESP 17; TEMP 36.6; O2SAT 96
[2023-07-12] MEDS: lactated ringers 1,000 ML 90 ML IV (00:05)
[2023-07-12 04:00] VITALS: BP 94/57; PULSE 67; RESP 16; TEMP 36.6; O2SAT 93
[2023-07-12 05:39] VITALS: BP 100/62
[2023-07-12] MEDS: nicotine 4 mg lozenge MUCOUS MEM (05:39)
[2023-07-12] MEDS: HYDROcodone-acetaminophen 5-325 mg Tablet PO ×2 (05:39→11:14)
[2023-07-12] MEDS: ketorolac 30 mg/mL INJ IVP (05:53)
[2023-07-12] MEDS: ceFAZolin 2,000 MG in sodium chloride 0.9% (plus) 50 ML 100 MG IV (06:43)
[2023-07-12 07:11] VITALS: PULSE 74; RESP 16; O2SAT 94
[2023-07-12 09:45] VITALS: BP 97/60; PULSE 65; RESP 18; TEMP 36.3; O2SAT 93
--- NOTE | 2023-07-12 09:57 | PM.DCS ---
Discharge Providers Date of Admission: 07/11/23 08:38 Date of Discharge: July 12, 2023 Attending Provider at Admission: Randall Driscoll DO Attending Provider at Discharge: Randall Driscoll DO Primary Care Provider: MOMO Vieyra Reason for Visit Reason for Visit: N51.36 Physical Exam Narrative: Patient is doing well complaining of left leg pain that comes sporadically. And radiates all way down his leg. The same pain he was having before surgery. Right leg feels better feels like he is having more tingling than anything. 5/5 strength bilateral lower extremities. Patient has been up walking several times. Urinary Catheter Management: Latex Free: Cath Placed During This Visit: yes Reason for Continuing Indwelling Catheter: Other Urinary Catheter Date of Insertion: 07/11/23 Urinary Catheter Time of Insertion: 07:10 Discharge Data Studies Completed and Pending Completed Studies During Hospitalization Category Date Time Status XR lumbar spine 2-3V* 78372 Routine Exams 07/11/23 Completed Pending at discharge Category Date Time Status C-arm Fluoroscopy 82153 Routine Exams 07/11/23 05:52 Taken Retype for Patiets ABO/Rh Routine Lab 07/11/23 07:14 Ordered Laboratory Results Blood Type O Positive 07/11/23 06:30 Rho(D) Type Positive 07/11/23 06:30 Antibody Screen Negative 07/11/23 06:30 Vitals Last Vital Signs Temp 97.4 F L 07/12/23 09:45 Pulse 65 07/12/23 09:45 Resp 18 07/12/23 09:45 BP 97/60 07/12/23 09:45 Pulse Ox 93 07/12/23 09:45 O2 Del Method Room Air 07/12/23 09:45 O2 Flow Rate 2 07/12/23 07:11 Discharge Plan Discharge Patient Disposition: Home Condition: Stable Prescriptions: New hydrocodone-acetaminophen 5-325 mg tablet 1 - 2 tab PO .Q4-6H Qty: 40 0RF Continued celecoxib [Celebrex] 200 mg capsule 200 mg PO DAILY methocarbamol 750 mg tablet 750 mg PO BID PRN (Reason: Spasms) gabapentin 300 mg capsule 100 mg PO TID finasteride 5 mg tablet 5 mg PO DAILY rosuvastatin [Crestor] 40 mg tablet 20 mg PO DAILY trazodone 100 mg tablet 100 mg PO DAILY Discharge Orders: Discharge Order (Routine); Ordered 07/12/23 Ordered By: Randall Driscoll Other Ambulatory Orders: DME: Walker (Order) Location: None Selected Ordered By: Randall Driscoll Discharge Diet: Advance as tolerated Discharge Activity: Limit activity as instructed Patient Instructions: Opioid Safety Activity Restrictions/Additional Instructions: Thank you for [facility] for your care! The following is a list of instructions, from your provider, to follow upon your discharge to ensure you have the optimal recovery from your recent injury orsurgery. Follow-up care is a hidalgo part of your treatment and safety. Be sure to make and go to all appointments, and call your doctor if you are having problems. If you do not already have a follow-up appointment made, call Dr. Driscoll office in the next 1-3 days to make follow up appointment for 1 weeks at [phone]. It is also a good idea to know your test results and keep a list of the medicines you take. Medications will be prescribed for you at your provider's discretion. These medications are to be used as instructed; if they are taken more often that prescribed they will not be refilled early and in most cases will not be refilled at all. > When a refill is needed,you should contact cally mcrae 2-3 business days before your prescription runs out. Medications will NOT be refilled by preparation department supervisor providers after hours! > Many pain medications contain Tylenol (Acetaminophen). Do not consume more than 4,000 mg of Tylenol per day in total with any combination ofmedications. > Pain medications can cause constipation. Please use an over the counter stool softener as directed, while taking pain medications. Consulty our local pharmacist with questions or recommendations on stool softeners. If constipation persists, contact our office or your primary care provider. > While under our care,you are not to receive pain medications or other controlled substances from any other provider unless our office is notified and approves. Any attempts to do so will result in refusal to prescribe any further pain medications and possible dismissal from our practice. ? lt wilt be necessary for you to cover your wound/dressing with plastic and tape to keep it dry. ? Walking is essential for the healing process after surgery. We would like you to slowly advance your walking. This should be done on relatively flat clear ground (inside or out) or can be done on a treadmill. Remember this goal does not have to happen all at once, slowly increase your distance and duration. This can be broken into more more than one walk per day as tolerated. Patients who walk as directed after surgery rarely require Physical Therapy. In the unlikely event this issue arises your provider will direct hospital staff to make the appropriate arrangements. ? No lifting over 5 pounds {a gallon of milk) or bending/twisting until further notice. Each of these activities places an unnecessary amount of stress onto the body and can impede the delicate healing process. > Instead of bending at the waist, keep your back straight and bend at the knees. > Instead of twisting your torso, keep your back straight and turn your entire body with your feet. ? You may sleep in any position which makes you comfortable. Many patients find comfort sleeping in a reclining chair. It is not abnormal to have difficulty sleeping for the first several weeks following your surgery. We recommend trying Benadry! or Tylenol PM as directed to help with your sleeping difficulties. Both medications are over the counter and available withoutprescription. ? NO SMOKING!!! Smoking dramatically increases the probability of developing postoperative wound infections. ? Common complaints after lumbar and/or thoracic spine surgery include, but are not limited to: numbness and/or tingling in the legs, pain around the incision and surrounding tissues, muscle spasms, or stiffness of the middle to low back. Contact our office if these symptoms persist or if an acute change occurs. ? No driving for the first 3-5days, and not while taking narcotics [] until seen at your follow-up appointment and cleared. There are no restrictions for riding on short trips, however if you take a longer trip, arrangements should be made to make regular stops to get out of the vehicle and stretch . ? Swelling is an unfortunate event that will take place with any surgery and is the primary source of your postoperative discomfort. While walking and regular approved activities helps control inflammation, there are additional steps you can take to minimizeswelling. > Place ice over the surgical site and surrounding tissue for twenty minutes, followed by applying a low/medium heat (heating pad) for an additional twenty minutes every 1-2 hours as needed for painrelief. > You may use of over the counter anti-inflammatory medications (Ibuprofen, Motrin, Aleve, Advil, etc) as directed on the package label. These types of medicines wm significantly reduce the amount of discomfort you experience after surgery from swelling. It should be noted that if you have and allergy to any of these medications, or a history of ulcers or kidney disease you should consult you primary care provider prior to starting these medications. Discharge Attestations Time Spent in Discharge Care*: less than 30 min Quality Metrics Clinical Quality Measures [ No reported AMI, CVA or VTE this stay] Coding Level of Care Code Acute Code for Chg Fwd Diagnoses
[2023-07-12] MEDS: atorvastatin 40 mg Tablet 80 MG PO (10:01)
[2023-07-12] MEDS: docusate sodium 100 mg Capsule PO (10:02)
[2023-07-12] MEDS: finasteride 5 mg Tablet PO (10:02)
[2023-07-12] MEDS: CELEcoxib 200 mg Capsule PO (10:02)
[2023-07-12] MEDS: gabapentin 100 mg Capsule PO (10:03)
[2023-07-12 12:37] VITALS: BP 97/60; PULSE 65; RESP 18; TEMP 36.3; O2SAT 93
== END 2023-07-12 12:37 | disposition home or self-care (01) | DRG 455 ==
LOC: MEDSURG 12:00
PROVIDERS: Admitting Provider Orthopaedic Surgery; PCP Nurse Practitioner; Visit Provider Orthopaedic Surgery
PROC: 0SG30AJ Fusion of Lumbosacral Joint with Interbody Fusion Device, Posterior Approach, Anterior Column, Open Approach (ICD-10-PCS; principal; 2023-07-11 07:00)
PROC: 0SG30AJ Fusion of Lumbosacral Joint with Interbody Fusion Device, Posterior Approach, Anterior Column, Open Approach (ICD-10-PCS; CPT 22612; 2023-07-11 07:00)
DX: M51.36 Other intervertebral disc degeneration, lumbar region (principal); M48.062 Spinal stenosis, lumbar region with neurogenic claudication; Z79.891 Long term (current) use of opiate analgesic; F17.200 Nicotine dependence, unspecified, uncomplicated; J44.9 Chronic obstructive pulmonary disease, unspecified
CPT/HCPCS: 36415; 51702; 72100; 76000; 86850; 86900; 97116; 97161; 97530; C1713; J0690; J1100; J1170; J1644; J1885; J2270; J2405; J2704; J2710; J3010; J3370; J3490; J7030; J7120

== ENCOUNTER → 2023-07-22 10:21 | Outpatient (BNVA) | payer OTHER, SELFPAY | PROVIDERS: PCP Nurse Practitioner; Visit Provider Physician Assistant | DX: Z47.89 Encounter for other orthopedic aftercare (principal); Z98.1 Arthrodesis status | CPT/HCPCS: 72100; 99024 ==

== ENCOUNTER → 2023-08-19 10:03 | Outpatient (BNVA) | payer OTHER, SELFPAY | PROVIDERS: PCP Nurse Practitioner; Visit Provider Physician Assistant | DX: Z98.1 Arthrodesis status (principal); Z47.89 Encounter for other orthopedic aftercare | CPT/HCPCS: 72100; 99024 ==

== ENCOUNTER → 2023-10-07 11:37 | Outpatient (BNVA) | payer OTHER, SELFPAY | PROVIDERS: PCP Nurse Practitioner; Visit Provider Orthopaedic Surgery | DX: Z47.89 Encounter for other orthopedic aftercare (principal); Z98.1 Arthrodesis status | CPT/HCPCS: 72100; 99024 ==

== ENCOUNTER 2023-10-21 14:27 | Outpatient (CLI) | payer OTHER, SELFPAY ==
--- NOTE | 2023-10-21 16:45 | MR_ITS ---
WS: [id number] MRI LUMBAR SPINE NONCONTRAST HISTORY: lumbar pain, prior spine surgery. COMPARISON: 05/08/2023 TECHNIQUE: Sagittal and axial multisequence imaging is submitted. Vertebral body osteophytes at C3-4 with mild encroachment upon the cervical canal. LEFT paracentral d isc protrusion at C6-7. Normal posterior alignment. Since the prior examination posterior lumbar fusion has been performed at L5-S1. Mild disc space narrowing at L5-S1. Interbody spacer in good position. Disc spaces and vertebral body heights are well-preserved. Conus terminates normally at L1-2 disc level. L1-L2: Normal. L2-L3: Mild bilateral facet joint arthritis. No stenosis or disc protrusion. L3-L4: Mild bilateral facet and ligamentum flavum hypertrophy. No stenosis. L4-L5: Bilateral mild facet joint arthritis and ligamentum flavum hypertrophy. Very mild encroachment and narrowing of the foramina but no high-grade stenosis. Similar to the prior study. L5-S1: Posterior laminectomy defects. Thecal sac is widely patent. There is increased soft tissue whi ch is intermediate on both the T2 and proton density sequences in the LEFT foramen. Obliteration of t he fat in the LEFT foramen. There is mild disc bulging. The disc also contacts minimally the exiting RIGHT L5 nerve root. Similar to the prior study. The signal abnormality within the LEFT foramen is co ntiguous with the surgical site. IMPRESSION: 1. Status post L5-S1 posterior fusion with laminectomy defect and interbody spacer. 2. There is increased soft tissue in the LEFT L5-S1 foramen. There is complete obliteration of the f at and contact on the LEFT L5 and S1 nerve roots. This is at the site of the prior surgery and may be scar tissue. Without contrast cannot exclude a disc fragment or protrusion. Postsurgical scarring ma y appear similar. Postcontrast imaging may be helpful. 3. Very minimal foraminal narrowing at L4-5. Similar to the prior study.
== END 2023-10-21 14:28 | disposition home or self-care (01) ==
LOC: RAD 14:27
PROVIDERS: PCP Nurse Practitioner; Visit Provider Orthopaedic Surgery
DX: Z98.1 Arthrodesis status (principal)
CPT/HCPCS: 72148

== ENCOUNTER → 2023-11-04 13:12 | Outpatient (BNVA) | payer OTHER, SELFPAY | PROVIDERS: PCP Nurse Practitioner; Visit Provider Orthopaedic Surgery | DX: Z98.1 Arthrodesis status (principal); Z79.52 Long term (current) use of systemic steroids; G89.18 Other acute postprocedural pain | CPT/HCPCS: 99214 ==

== ENCOUNTER 2023-11-12 13:05 | Observation (INO) | payer OTHER, SELFPAY ==
[2023-11-12] VITALS (20 sets, daily range): BP systolic 90–123; BP diastolic 48–78; PULSE 70–99; RESP 15–35; TEMP 36.1–36.7; O2SAT 91–100; BMI 26.2
[2023-11-12] MEDS: sodium chloride 0.9% 1,000 ML 30 ML IV (09:44)
[2023-11-12] MEDS: HYDROmorphone 1 mg/mL INJ 1 mL 0.5 MG IVP (09:59)
--- NOTE | 2023-11-12 10:04 | ANES.PREANE2 ---
Pre-Anesthetic Assessment Height/Weight: Height 1.75 m Weight 80.739 kg Temp Pulse Resp BP Pulse Ox O2 Del Method 97 F L 70 18 113/70 97 Room Air 11/12/23 09:24 11/12/23 09:24 11/12/23 09:24 11/12/23 09:24 11/12/23 09:24 11/12/23 09:47 Preop Diagnosis: L5/S1 disk herniation Operation Date: 11/12/23 10:40 Proposed Procedures p Lumbar Spine Decompression Lumbar Decompression(Not Applicable) - Randall Driscoll DO Familial anesthetic complications: none Was Beta Sanju taken within 24 hours: N/A Was Clonidine taken within 24 hours: N/A Last intake: Intake Last Liquid Date 11/11/23 Last Liquid Time 23:00 Last Solid Date 11/11/23 Last Solid Time 21:00 Social Tobacco and No alcohol Exam alert, oriented x 3 and regular rate & rhythm Airway Submandibular: within normal limits Cervical ROM: within normal limits Mallampati: Class II Dentition: false (upper) Pulmonary Chronic Obstructive Pulmonary Disease Musc/skel Lower Back Pain and Osteoarthritis/DJD Anesthetic Plan ASA status: 3 Anesthesia: General Medications/Allergies Home Medications Medication Instructions Recorded Confirmed Last Taken Type celecoxib 200 mg capsule (Celebrex) 200 mg PO DAILY 07/18/22 11/11/23 3 Weeks Ago History ~10/21/23 finasteride 5 mg tablet 5 mg PO DAILY 07/09/23 11/11/23 11/11/23 History gabapentin 300 mg capsule 300 mg PO TID pain 07/09/23 11/11/23 11/11/23 History methocarbamol 750 mg tablet 750 mg PO BID PRN Spasms 07/09/23 11/11/23 11/05/23 History rosuvastatin 40 mg tablet (Crestor) 20 mg PO QPM 07/09/23 11/11/23 11/11/23 History trazodone 100 mg tablet 100 mg PO QPM 07/09/23 11/11/23 11/11/23 History mirabegron 50 mg tablet,extended 50 mg PO QPM 11/11/23 11/11/23 11/11/23 History release 24 hr (Myrbetriq) Allergies Allergy/AdvReac Type Severity Reaction Status Date / Time topiramate Allergy Mild numbness Uncoded 11/12/23 09:14 Current Medications Generic Name Dose Route Start Last Admin Trade Name Freq PRN Reason Stop Dose Admin Hydromorphone HCl 0.5 mg 11/12/23 09:07 11/12/23 09:59 Hydromorphone 1 Mg/Ml Inj 1 Ml IVP 0.5 mg ONCE PRN Administration For preop pain/anxiety Sodium Chloride 1,000 mls @ 30 mls/hr 11/12/23 09:15 11/12/23 09:44 Sodium Chloride 0.9% IV 11/13/23 09:14 30 mls/hr .Q24H DANIEL Administration PFSH Anesthesia Social History Smoking and tobacco/nicotine status: current every day tobacco/nicotine user Second hand smoke exposure: No Alcohol intake: current Substance/Drug Use: never Data Anesthesia Cardiac Studies: No Data to Display
--- NOTE | 2023-11-12 10:19 | W.PM.OPSUD ---
Surgery/Procedure H&P Update DATE OF PROCEDURE: November 12, 2023 DATE H&P PERFORMED: 11/04/23 H&P UPDATE INFORMATION: I have reviewed H&P completed within last 30 days, I have examined patient prior to procedure and No changes to prior documentation PREOP DIAGNOSIS: L5/S1 disk herniation PLANNED PROCEDURE: Operation Date: 11/12/23 10:40 Proposed Procedures p Lumbar Spine Decompression Lumbar Decompression(Not Applicable) - Randall Driscoll DO
[2023-11-12] MEDS: ceFAZolin 2,000 MG in sodium chloride 0.9% (plus) 50 ML 100 MG IV ×2 (11:01→20:20)
[2023-11-12] MEDS: vancomycin 1,000 MG SDV 1000 MG XX (11:45)
[2023-11-12] MEDS: lidocaine-epi 1% 20 mL INJ INJECTION (11:45)
--- NOTE | 2023-11-12 13:21 | PM.OP ---
Operative Report Date of procedure: November 12, 2023 Pre-op diagnosis: Bilateral foraminal stenosis Post-op diagnosis: same Procedure done: 1. Bilateral facetectomies with laminectomies 2. Removal of deep hardware from spine and replacement of rods Surgeon: Randall Driscoll DO Estimated blood loss (mL): 100 Procedure: 1. Bilateral facetectomies with laminectomies 2. Removal of deep hardware from spine and replacement of rods Patient brought the op suite after going anesthesia was placed was placed in the prone position. All areas impingement well-padded. Patient's prepped reamers were fashion. Skin incision made using previous skin incision dissection was made down to the hardware. Retractors were placed. The caps for the screws were removed. And then the rods were removed. This was done bilaterally. Exposure was done from the remaining lamina using Bovie to find the edges of the bone. High-speed bur was used to take down part of the remaining lamina. Been medial aspect of the facet joint. And then facet joint was identified and completely removed the L5 nerve was identified and traced out the area where the foramen was there is significant mount of scar tissue. There was scar tissue and possible disc material on the left side. Where the cage was placed. Then the S1 nerve was traced out the more on the S1 pedicle. The right side was also had a facetectomy done using the same technique of using the Bovie from the edge of the lamina traced around the edge of the facet facet was taken out with a high-speed bur to curved curettes and Kerrison was used to take remaining facet. And the nerve was traced out the foramen. Patient had a similar large amount of scar tissue around the nerves there is cause nerves to be immobile. Wounds were irrigated deep drain placement placement was placed and wound was closed in layered fashion with 0 Vicryl 2-0 Vicryl and Monocryl suture. Sterile dressings applied patient transferred to PACU in stable condition.
[2023-11-12] MEDS: fentaNYL 50 mcg/mL INJ 2mL IVP ×2 (13:27→13:46)
[2023-11-12] MEDS: HYDROcodone-acetaminophen 5-325 mg Tablet PO (14:44)
[2023-11-12] MEDS: gabapentin 300 mg Capsule PO ×2 (14:44→20:20)
--- NOTE | 2023-11-12 14:45 | ANE.PACU2 ---
Inpatient post-anesthesia follow up: Airway intact: Yes Vital signs: Temperature 97.7 F Pulse Rate 81 Respiratory Rate 18 Blood Pressure 95/56 Pulse Oximetry 91 Oxygen Delivery Me thod Room Air Oxygen Flow Rate Fraction of Inspir ed Oxygen Hydration adequate: Yes Nausea and vomiting: No Pain level: 2 Mental status: Baseline
[2023-11-12] MEDS: atorvastatin 40 mg Tablet 80 MG PO (17:26)
[2023-11-12] MEDS: trazodone 100 mg Tablet PO (17:26)
[2023-11-12] MEDS: docusate sodium 100 mg Capsule PO (17:26)
[2023-11-12] MEDS: nicotine 4 mg lozenge MUCOUS MEM ×2 (17:26→20:31)
[2023-11-12] MEDS: lactated ringers 1,000 ML 90 ML IV (17:39)
[2023-11-12] MEDS: ketorolac 30 mg/mL INJ IVP (17:40)
[2023-11-13] VITALS: BP 93/66; PULSE 77; RESP 18; TEMP 36.4; O2SAT 94
[2023-11-13] MEDS: ketorolac 30 mg/mL INJ IVP (00:02)
[2023-11-13] MEDS: ceFAZolin 2,000 MG in sodium chloride 0.9% (plus) 50 ML 100 MG IV (03:50)
[2023-11-13] MEDS: nicotine 4 mg lozenge MUCOUS MEM (03:51)
[2023-11-13] MEDS: lactated ringers 1,000 ML 90 ML IV (03:51)
[2023-11-13 04:00] VITALS: BP 114/71; PULSE 79; RESP 18; TEMP 36.4; O2SAT 96
--- NOTE | 2023-11-13 06:48 | P.DS_ITS ---
Discharge Providers Date of Admission: 11/12/23 13:05 Date of Discharge: November 13, 2023 Attending Provider at Admission: Randall Driscoll DO Attending Provider at Discharge: Randall Driscoll DO Primary Care Provider: MOMO Vieyra Reason for Visit Reason for Visit: M48.062 Physical Exam Narrative: Pain better controlled this morning Discharge Data Vitals Last Vital Signs Temp 97.6 F 11/13/23 04:00 Pulse 79 11/13/23 04:00 Resp 18 11/13/23 04:00 BP 114/71 11/13/23 04:00 Pulse Ox 96 11/13/23 04:00 O2 Del Method Room Air 11/13/23 04:00 Discharge Plan Discharge Patient Disposition: Home Condition: Stable Prescriptions: New hydrocodone-acetaminophen 5-325 mg tablet 1 - 2 tab PO .Q4-6H Qty: 40 0RF Continued celecoxib [Celebrex] 200 mg capsule 200 mg PO DAILY methocarbamol 750 mg tablet 750 mg PO BID PRN (Reason: Spasms) gabapentin 300 mg capsule 300 mg PO TID finasteride 5 mg tablet 5 mg PO DAILY rosuvastatin [Crestor] 40 mg tablet 20 mg PO QPM trazodone 100 mg tablet 100 mg PO QPM Myrbetriq 50 mg Tablet Extended Release 24 Hr 50 mg PO QPM Discharge Orders: Discharge Order (Routine); Ordered 11/13/23 Ordered By: Randall Driscoll Discharge Diet: Advance as tolerated Discharge Activity: Limit activity as instructed Patient Instructions: Opioid Safety Activity Restrictions/Additional Instructions: Thank you for [facility] for your care! The following is a list of instructions, from your provider, to follow upon your discharge to ensure you have the optimal recovery from your recent injury orsurgery. Follow-up care is a hidalgo part of your treatment and safety. Be sure to make and go to all appointments, and call your doctor if you are having problems. If you do not already have a follow-up appointment made, call Dr. Driscoll office in the next 1-3 days to make follow up appointment for 2 weeks at [phone]. It is also a good idea to know your test results and keep a list of the medicines you take. Medications will be prescribed for you at your provider's discretion. These medications are to be used as instructed; if they are taken more often that prescribed they will not be refilled early and in most cases will not be refilled at all. > When a refill is needed,you should contact cally m[facility] 2-3 business days before your prescription runs out. Medications will NOT be refilled by supervisor telephone information providers after hours! > Many pain medications contain Tylenol (Acetaminophen). Do not consume more than 4,000 mg of Tylenol per day in total with any combination ofmedications. > Pain medications can cause constipation. Please use an over the counter stool softener as directed, while taking pain medications. Consulty our local pharmacist with questions or recommendations on stool softeners. If constipation persists, contact our office or your primary care provider. > While under our care,you are not to receive pain medications or other controlled substances from any other provider unless our office is notified and approves. Any attempts to do so will result in refusal to prescribe any further pain medications and possible dismissal from our practice. ? Your wound and/or dressing should remain clean and dry for 2 days aft er surgery. On postoperative day 2 (48 hours after your surgery) the dressing (if present) should be removed and it is okay to shower and get the incision wet. Pad dry afterwards. No further dressing should be required from that point on. Do not put any creams or ointments on theincision > It is normal for there to be a small amount of discharge (bloody or blood tinged) present from a surgical wound for the first 1-3days. > The wound should be examined twice a day for signs of infection. Mild redness or bruising is to be expected but indications that an infection maybe starting would include; An increase in redness, swelling, or discharge, a foul odor present around the incision, and/or a fever greater than 101 ?F ? Showering is permitted, however we ask that you do not take a bath, sit in a whirlpool / Jacuzzi, or go swimming for 1 month. For only the first 2 days after surgery, lt wilt be necessary for you to cover your wound/dressing with plastic and tape to keep it dry. ? Walking is essential for the healing process after surgery. We would like you to slowly advance your walking. This should be done on relatively flat clear ground (inside or out) or can be done on a treadmill. Remember this goal does not have to happen all at once, slowly increase your distance and duration. This can be broken into more more than one walk per day as tolerated. Patients who walk as directed after surgery rarely require Physical Therapy. In the unlikely event this issue arises your provider will direct hospital staff to make the appropriate arrangements. ? No lifting over 5 pounds {a gallon of milk) or bending/twisting until further notice. Each of these activities places an unnecessary amount of stress onto the body and can impede the delicate healing process. > Instead of bending at the waist, keep your back straight and bend at the knees. > Instead of twisting your torso, keep your back straight and turn your entire body with your feet. ? You may sleep in any position which makes you comfortable. Many patients find comfort sleeping in a reclining chair. It is not abnormal to have difficulty sleeping for the first several weeks following your surgery. We recommend trying Benadry! or Tylenol PM as directed to help with your sleeping difficulties. Both medications are over the counter and available withoutpresc ription. ? NO SMOKING!!! Smoking dramatically increases the probability of developing postoperative wound infections. ? Common complaints after lumbar and/or thoracic spine surgery include, but are not limited to: numbness and/or tingling in the legs, pain around the incision and surrounding tissues, muscle spasms, or stiffness of the middle to low back. Contact our office if these symptoms persist or if an acute change occurs. ? No driving for the first 3-5days, and not while taking narcotics until seen at your follow-up appointment and cleared. There are no restrictions for riding on short trips, however if you take a longer trip, arrangements should be made to make regular stops to get out of the vehicle and stretch . ? Swelling is an unfortunate event that will take place with any surgery and is the primary source of your postoperative discomfort. While walking and regular approved activities helps control inflammation, there are additional steps you can take to minimizeswelling. > Place ice over the surgical site and surrounding tissue for twenty minutes, followed by applying a low/medium heat (heating pad) for an additional twenty minutes every 1-2 hours as needed for painrelief. > You may use of over the counter anti-inflammatory medications (Ibuprofen, Motrin, Aleve, Advil, etc) as directed on the package label. These types of medicines wm significantly reduce the amount of discomfort you experience after surgery from swelling. It should be noted that if you have and allergy to any of these medications, or a history of ulcers or kidney disease you should consult you primary care provider prior to starting these medications. Discharge Attestations Time Spent in Discharge Care*: less than 30 min Quality Metrics Clinical Quality Measures [ No reported AMI, CVA or VTE this stay] Coding Level of Care Code Acute Code for Vickieg Rebecca
[2023-11-13 07:42] VITALS: BP 106/72; PULSE 66; RESP 16; O2SAT 96
--- NOTE | 2023-11-13 08:01 | PC.NURSE ---
HEMOVAC REMOVED PER PROTOCOL. TOLERATED WELL.
--- NOTE | 2023-11-13 08:01 | PC.NURSE ---
DISCHARGE PAPERWORK COMPLETED. IV REMOVED. HEMOVAC REMOVED. AWAITING PT RIDE COMING FROM [place].
[2023-11-13] MEDS: HYDROcodone-acetaminophen 5-325 mg Tablet PO (08:39)
[2023-11-13 08:41] VITALS: BP 106/72; PULSE 66; RESP 16; O2SAT 96
== END 2023-11-13 08:44 | disposition home or self-care (01) ==
LOC: MEDSURG 13:06
PROVIDERS: Admitting Provider Orthopaedic Surgery; PCP Nurse Practitioner; Visit Provider Orthopaedic Surgery
PROC: (CPT 63005; principal; 2023-11-12 10:30)
DX: M48.062 Spinal stenosis, lumbar region with neurogenic claudication (principal); F17.210 Nicotine dependence, cigarettes, uncomplicated; J44.9 Chronic obstructive pulmonary disease, unspecified
CPT/HCPCS: 63047; 97116; 97161; 97530; G0378; J0330; J0690; J1100; J1170; J1885; J2250; J2405; J2704; J3010; J3370; J3490; J7030; J7120

== ENCOUNTER → 2023-11-25 14:27 | Outpatient (BNVA) | payer OTHER, SELFPAY | PROVIDERS: PCP Nurse Practitioner; Visit Provider Orthopaedic Surgery | DX: Z47.89 Encounter for other orthopedic aftercare; Z98.1 Arthrodesis status | CPT/HCPCS: 99024 ==

== ENCOUNTER → 2023-12-23 14:35 | Outpatient (BNVA) | payer OTHER, SELFPAY | PROVIDERS: PCP Nurse Practitioner; Visit Provider Orthopaedic Surgery | DX: M48.062 Spinal stenosis, lumbar region with neurogenic claudication (principal); Z98.1 Arthrodesis status | CPT/HCPCS: 72100; 99024 ==

== ENCOUNTER → 2024-01-27 13:06 | Outpatient (BNVA) | payer OTHER, SELFPAY | PROVIDERS: PCP Nurse Practitioner; Visit Provider Orthopaedic Surgery | DX: Z98.1 Arthrodesis status (principal); M48.062 Spinal stenosis, lumbar region with neurogenic claudication | CPT/HCPCS: 72100; 99024 ==

== ENCOUNTER → 2024-03-23 12:57 | Outpatient (BNVA) | payer OTHER, SELFPAY | PROVIDERS: PCP Nurse Practitioner; Visit Provider Orthopaedic Surgery | DX: Z98.1 Arthrodesis status (principal) | CPT/HCPCS: 72100; 99024 ==

== ENCOUNTER → 2024-06-08 13:35 | Outpatient (BNVA) | payer OTHER, SELFPAY | PROVIDERS: PCP Nurse Practitioner; Visit Provider Orthopaedic Surgery | DX: Z98.1 Arthrodesis status (principal) | CPT/HCPCS: 72100; 99214 ==

== ENCOUNTER 2024-07-01 06:00 | Outpatient (RCR) | payer OTHER, SELFPAY | END 2024-07-29 23:59 | disposition home or self-care (01) | LOC: SPT 06:00 | PROVIDERS: Visit Provider Orthopaedic Surgery | DX: M54.9 Dorsalgia, unspecified (principal); G89.29 Other chronic pain | CPT/HCPCS: 97032; 97110; 97140; 97161 ==

== ENCOUNTER → 2024-07-21 10:48 | Outpatient (BNVA) | payer OTHER, SELFPAY | PROVIDERS: Referring Provider Orthopaedic Surgery; Visit Provider Psychiatry & Neurology Neurology | DX: Z98.1 Arthrodesis status (principal); R20.2 Paresthesia of skin; M48.062 Spinal stenosis, lumbar region with neurogenic claudication | CPT/HCPCS: 95885; 95911 ==

== ENCOUNTER → 2024-07-29 14:00 | Outpatient (BNVA) | payer OTHER, SELFPAY | PROVIDERS: Visit Provider Orthopaedic Surgery | DX: M48.062 Spinal stenosis, lumbar region with neurogenic claudication | CPT/HCPCS: 99214 ==

== ENCOUNTER 2024-07-30 06:00 | Outpatient (RCR) | payer OTHER, SELFPAY | END 2024-08-28 23:59 | disposition home or self-care (01) | LOC: SPT 06:00 | PROVIDERS: Visit Provider Orthopaedic Surgery | DX: M54.9 Dorsalgia, unspecified (principal); G89.29 Other chronic pain | CPT/HCPCS: 97110 ==

== ENCOUNTER 2024-08-29 06:00 | Outpatient (RCR) | payer OTHER, SELFPAY | END 2024-09-28 23:59 | disposition home or self-care (01) | LOC: SPT 06:00 | PROVIDERS: Visit Provider Orthopaedic Surgery | DX: M54.9 Dorsalgia, unspecified (principal); G89.29 Other chronic pain | CPT/HCPCS: 97110 ==

== ENCOUNTER → 2024-09-14 12:58 | Outpatient (BNVA) | payer OTHER, SELFPAY | PROVIDERS: Visit Provider Orthopaedic Surgery | DX: Z98.1 Arthrodesis status (principal) | CPT/HCPCS: 72100; 99213 ==

== ENCOUNTER 2024-09-29 06:00 | Outpatient (RCR) | payer OTHER, SELFPAY | END 2024-10-23 23:55 | disposition home or self-care (01) | LOC: SPT 06:00 | PROVIDERS: Visit Provider Orthopaedic Surgery | DX: M54.9 Dorsalgia, unspecified (principal); G89.29 Other chronic pain | CPT/HCPCS: 97110; 97164 ==

== ENCOUNTER → 2024-11-30 08:35 | Outpatient (BNVA) | payer OTHER, SELFPAY | PROVIDERS: PCP Nurse Practitioner; Referring Provider Orthopaedic Surgery; Visit Provider Psychiatry & Neurology Neurology | DX: R20.2 Paresthesia of skin (principal); M48.062 Spinal stenosis, lumbar region with neurogenic claudication; N28.9 Disorder of kidney and ureter, unspecified; M47.816 Spondylosis without myelopathy or radiculopathy, lumbar region; S39.012A Strain of muscle, fascia and tendon of lower back, initial encounter; M79.604 Pain in right leg; M79.605 Pain in left leg; R20.8 Other disturbances of skin sensation; X58.XXXA Exposure to other specified factors, initial encounter | CPT/HCPCS: 36415; 82565; 84520; 99203 ==

== ENCOUNTER 2024-12-06 08:31 | Outpatient (CLI) | payer OTHER, SELFPAY ==
--- NOTE | 2024-12-06 08:34 | CT_ITS ---
WS: [id number] CT NECK TECHNIQUE: Contrast-enhanced CT of the neck with coronal and sagittal reformatted images. CLINICAL INFORMATION: OTALGIA PROTOCOL/?HEAD NECK NEOPLASM COMPARISON: None. DLP: 269.[address] scans at [facility] use at least one of these dose optimization techniques: automated exposure control; mA and/or kV adjustment per patient size (includes targeted exams where dose is matched to clinical indication); or iterative reconstruction. FINDINGS: Paranasal sinuses are well aerated. Mastoid air cells are well aerated. Parotid glands are normal. Submandibular glands are normal. Tonsillar calcifications. Normal posterior nasopharynx. Normal parapharyngeal fat. No evidence of supraglottic or glottic mass. Normal vallecula and piriform sinuses. Normal subglottic airway. Tiny LEFT posterior thyroid nodule measuring 6 mm. Advanced chronic emphysematous changes in the lung apices. Moderate spondylitic changes cervical spine. RIGHT hilar masslike lymphadenopathy measuring 2.5 x 1.8 cm. Recommend further evaluation with chest CT. Neoplasm not excluded. CT/CT neck w con* [id number] IMPRESSION: 1. 2.5 x 1.8 cm RIGHT hilar soft tissue mass/lymph node. Recommend further keyanna luation with chest CT. Neoplasm not excluded. No prior comparisons. 2. No evidence of supraglottic or glottic mass. 3. Small LEFT thyroid nodule. 4. Normal salivary glands.
--- NOTE | 2024-12-06 08:45 | MR_ITS ---
WS: [id number] MRI LUMBAR SPINE WITH AND WITHOUT CONTRAST HISTORY: Postop pain, LEFT foot pain. Prior lumbar surgeries. COMPARISON: 10/21/2023, 05/08/2023 TECHNIQUE: Sagittal and axial multisequence imaging is submitted. Post contrast MultiHance 18 mL. Small disc osteophytes at C3-4, C5-6 and C6-7. Postoperative posterior lumbar fusion at L5-S1. Interbody disc spacer at L5-S1. Mild narrowing of the L5-S1 disc space. Postoperative changes are reidentified in the paraspinal soft tissues at L5-S1. There is no focal fluid collection. Remaining disc spaces are maintained. Conus terminates normally at L1-2 disc level. L1-L2: Normal. L2-L3: Minimal facet arthritis. No stenosis. L3-L4: Minimal bilateral facet arthritis and ligamentum flavum hypertrophy. Very slight narrowing of the LEFT foramen. L4-L5: Mild disc bulging. Moderate facet and ligamentum flavum hypertrophy. Mild bilateral foraminal stenosis. Posterior laminectomy defect. L5-S1: Widely patent thecal sac. Posterior laminectomy defects. Bilateral foraminal stenosis, LEFT greater than RIGHT. Near complete effacement of fat in the LEFT facet. Mild effacement of fat on the RIGHT. There is contact on the LEFT exiting L5 nerve root similar to the prior study. There is mild enhancement in the LEFT L5-S1 foramen indicating scar tissue but there is also encroachment upon the nerve root. Postcontrast imaging is negative for discitis or osteomyelitis. MR/MR lumbar spine wo/w con [id number] IMPRESSION: 1. Status post L5-S1 lumbar fusion with laminectomy defects. 2. Moderate to severe LEFT foraminal stenosis at L5-S1 possible. Similar to th e prior study from 10/21/2023. Encroachment upon the LEFT exiting L5 nerve root. 3. Mild bilateral foraminal stenosis at L4-5. 4. No evidence for discitis or osteomyelitis.
[2024-12-06] MEDS: iohexol 350 mg/mL 500 mL Btl (per mL) IV (10:16)
[2024-12-06] MEDS: gadobenate dimeglumine 20 mL vial IV (15:54)
== END 2024-12-06 08:32 | disposition home or self-care (01) ==
PROVIDERS: PCP Nurse Practitioner; Visit Provider Psychiatry & Neurology Neurology
DX: H92.01 Otalgia, right ear (principal); Z98.1 Arthrodesis status; R20.2 Paresthesia of skin; M51.369 Other intervertebral disc degeneration, lumbar region without mention of lumbar back pain or lower extremity pain; M48.062 Spinal stenosis, lumbar region with neurogenic claudication; R93.89 Abnormal findings on diagnostic imaging of other specified body structures; E04.1 Nontoxic single thyroid nodule; J35.8 Other chronic diseases of tonsils and adenoids; J43.8 Other emphysema; M47.892 Other spondylosis, cervical region; M96.89 Other intraoperative and postprocedural complications and disorders of the musculoskeletal system; M24.28 Disorder of ligament, vertebrae; R93.7 Abnormal findings on diagnostic imaging of other parts of musculoskeletal system; M48.07 Spinal stenosis, lumbosacral region
CPT/HCPCS: 70491; 72158

== ENCOUNTER → 2024-12-16 13:10 | Outpatient (BNVA) | payer OTHER, SELFPAY | PROVIDERS: PCP Nurse Practitioner; Visit Provider Orthopaedic Surgery | DX: Z98.1 Arthrodesis status (principal); M48.062 Spinal stenosis, lumbar region with neurogenic claudication | CPT/HCPCS: 72110; 99214 ==

== ENCOUNTER → 2024-12-27 12:55 | Outpatient (BNVA) | payer OTHER, SELFPAY | PROVIDERS: PCP Nurse Practitioner; Referring Provider Nurse Practitioner; Visit Provider Anesthesiology Pain Medicine | DX: M48.062 Spinal stenosis, lumbar region with neurogenic claudication (principal); M47.816 Spondylosis without myelopathy or radiculopathy, lumbar region | CPT/HCPCS: 99214 ==